=== PATIENT | female | born 1960 | race Caucasian/White ===

== ENCOUNTER 2019-05-07 13:33 | Inpatient (IN) | payer OTHER ==
[~2019-05-07] VITALS: Ht 160 cm; Wt 77.1 kg
[2019-05-07] MEDS ORDERED: SYNTHROID112 MCG PO (13:57)
[2019-05-07] MEDS ORDERED: PREVACID15 MG PO (13:59)
[2019-05-07] MEDS ORDERED: TENORMIN25 MG PO (13:59)
[2019-05-07] MEDS ORDERED: SYNTHROID125 MCG PO (13:59)
[2019-05-07] MEDS ORDERED: ALPRAZOLAM OD0.25 MG PO (14:00)
--- NOTE | 2019-05-07 14:01 | NUR ---
SE RECIBE PTE FEMENINA ALERTA Y ORIENTADA X3, REFIERE DOLOR ABDOMINAL HACE UN MES, INDICA SER REFERIDA POR .
--- NOTE | 2019-05-07 14:06 | NUR ---
SE RECIBE PTE FEMENINA, ALERTA Y ORIENTADA X3, REFIERE DOLOR ABDOMINAL DESDE HACE UN MES. INDICA SER REFERIDA PARA ADMISION POR .
--- NOTE | 2019-05-07 17:15 | NUR ---
PACIENTE ALERTA Y ORIENTADA X3. SE ORIENTA SOBRE PROCEDIMIENTO A REALIZAR Y TX A RECIBIR Y REFIERE ENTENDER. SE REALIZA MUESTRAS DE LABORATORIO BAJO MEDIDAS ASEPTICAS. CANALIZACION PATENTE Y ZEKE DE EDEMA Y ERITEMA. [place] [facility] MEDICAMENTOS [place] ORDEN MEDICA. SE MANTIENE BAJO OBSERVACION POR CAMBIOS SIGNIFICATIVOS. PENDIENTE TOMARSE CONTRASTE ORDENADO PARA CT ABDOMEN Y PELVICO Y ENTREGA DE MUESTRA DE ORINA.
[2019-05-14] MEDS ORDERED: PERCOCET 5-3251 EACH PO (16:31)
[2019-05-14] MEDS ORDERED: DICY20TA PO (16:31)
== END 2019-05-14 17:58 | disposition home or self-care (01) | DRG 392 ==
LOC: ER 13:33 → SURG 17:45 → SURH 17:45
PROVIDERS: ADMIT Surgery
PROC: BW21YZZ Computerized Tomography (CT Scan) of Abdomen and Pelvis using Other Contrast (ICD-10-PCS; 2019-05-07)
PROC: 3E0436Z Introduction of Nutritional Substance into Central Vein, Percutaneous Approach (ICD-10-PCS; principal; 2019-05-08)
PROC: 02HV33Z Insertion of Infusion Device into Superior Vena Cava, Percutaneous Approach (ICD-10-PCS; 2019-05-08)
DX: K57.32 Diverticulitis of large intestine without perforation or abscess without bleeding (principal); E44.0 Moderate protein-calorie malnutrition; K76.0 Fatty (change of) liver, not elsewhere classified; E03.8 Other specified hypothyroidism; I10 Essential (primary) hypertension; G47.33 Obstructive sleep apnea (adult) (pediatric)

== ENCOUNTER 2019-05-29 12:54 | Inpatient (IN) | payer OTHER ==
[~2019-05-29] VITALS: Ht 157.5 cm; Wt 72.6 kg
[~2019-05-29 12:54] MED LIST: ALPRAZOLAM OD0.25 MG PO; DICY20TA PO; PERCOCET 5-3251 EACH PO; PREVACID15 MG PO; SYNTHROID112 MCG PO; SYNTHROID125 MCG PO; TENORMIN25 MG PO
--- NOTE | 2019-05-29 13:20 | NUR ---
PACIENTE FEMINA ALERTA Y ORIENTADA. PRESENTADO EPISODIO DE DIVERTICULITIS #5, REFIERE TENER DOLOR EN EL AREA DE ABDOMEN Y PELVICA. VARGAS MEDICO ES LA HERRERA: ANDREAS WALTERS LA CUAL REFIRIO QUE VINIERA A LA JOE DE EMERGENCIA. VOMITOS EN LAS ULTIMAS [address].
--- NOTE | 2019-05-29 14:35 | NUR ---
PACIENTE ALERTA Y ORIENTADA EN LAS LUPIS ESFERAS, SE CHARMAINE MUESTRAS DE NELLY Y CULTIVO DE NELLY BAJO MEDIDAS ESTERILES. SE ADMINISTRAN MEDICAMENTOS CHAVA ORDEN MEDICA. PACIENTE ORIENTADA SOBRE PROCEDIMIENTOS Y MEDICAMENTOS VERBALIZA ENTENDER. SE AMANDA CON BARANDAS ELEVADAS Y TIMBRE ACCESIBLE.
[2019-06-09] MEDS ORDERED: IMODIUM A-D2 MG PO (12:24)
[2019-06-09] MEDS ORDERED: OXYC1TAB9 PO (12:24)
[2019-06-09] MEDS ORDERED: HYOSCYAMINE0.125 M1 SL (12:24)
== END 2019-06-09 13:47 | disposition home or self-care (01) | DRG 329 ==
LOC: ER 12:54 → SURH 14:10 → EDBD 14:10 → SEC-K 14:10 → SURH 16:59
PROVIDERS: ADMIT Surgery
PROC: 02HV33Z Insertion of Infusion Device into Superior Vena Cava, Percutaneous Approach (ICD-10-PCS; 2019-05-30)
PROC: 3E0436Z Introduction of Nutritional Substance into Central Vein, Percutaneous Approach (ICD-10-PCS; 2019-05-30)
PROC: 30233N1 Transfusion of Nonautologous Red Blood Cells into Peripheral Vein, Percutaneous Approach (ICD-10-PCS; 2019-06-02)
PROC: 4A033R1 Measurement of Arterial Saturation, Peripheral, Percutaneous Approach (ICD-10-PCS; 2019-06-04)
PROC: 4A12X4Z Monitoring of Cardiac Electrical Activity, External Approach (ICD-10-PCS; 2019-06-04)
PROC: 0D1B4Z4 Bypass Ileum to Cutaneous, Percutaneous Endoscopic Approach (ICD-10-PCS; principal; 2019-06-04 08:30)
DX: K57.20 Diverticulitis of large intestine with perforation and abscess without bleeding (principal); K65.1 Peritoneal abscess; E44.0 Moderate protein-calorie malnutrition; D62 Acute posthemorrhagic anemia; K56.51 Intestinal adhesions [bands], with partial obstruction; E03.8 Other specified hypothyroidism; G47.33 Obstructive sleep apnea (adult) (pediatric); I10 Essential (primary) hypertension

== ENCOUNTER 2019-08-07 13:30 | Inpatient (IN) | payer OTHER ==
[~2019-08-07] VITALS: Ht 157.5 cm; Wt 69.9 kg
[~2019-08-07 13:30] MED LIST changes: +HYOSCYAMINE0.125 M1 SL; +IMODIUM A-D2 MG PO; +OXYC1TAB9 PO
[2019-08-07] MEDS ORDERED: TOPROL XL25 M1 PO (14:53)
[2019-08-07] MEDS ORDERED: AMOX1TAB5 (14:54)
[2019-08-07] MEDS ORDERED: PRILOSEC OTC20 MG PO (14:54)
[2019-08-07] MEDS ORDERED: CARAFATE1 GM PO (14:55)
[2019-08-13] MEDS ORDERED: AMOX-CLAV 875-1 EACH (09:42)
[2019-08-16] MEDS ORDERED: INTEGRA F CAPS1 EACH PO (11:09)
== END 2019-08-16 12:03 | disposition home or self-care (01) | DRG 334 ==
LOC: O/R 08-13 07:14 → SURH 08-13 07:14 → O/R 08-13 13:30 → SURH 08-13 13:30 → SURG 08-13 18:17 → SURH 08-13 18:41
PROVIDERS: ADMIT Surgery
PROC: 0W9J4ZZ Drainage of Pelvic Cavity, Percutaneous Endoscopic Approach (ICD-10-PCS; 2019-08-13)
PROC: 4A033R1 Measurement of Arterial Saturation, Peripheral, Percutaneous Approach (ICD-10-PCS; 2019-08-13)
PROC: 4A12X4Z Monitoring of Cardiac Electrical Activity, External Approach (ICD-10-PCS; 2019-08-13)
PROC: 4A19X1Z Monitoring of Respiratory Capacity, External Approach (ICD-10-PCS; 2019-08-13)
PROC: 0DBP4ZZ Excision of Rectum, Percutaneous Endoscopic Approach (ICD-10-PCS; principal; 2019-08-13 12:30)
DX: K57.20 Diverticulitis of large intestine with perforation and abscess without bleeding (principal); K66.0 Peritoneal adhesions (postprocedural) (postinfection); I10 Essential (primary) hypertension; E03.9 Hypothyroidism, unspecified

== ENCOUNTER 2019-10-16 10:45 | Inpatient (IN) | payer OTHER ==
[~2019-10-16] VITALS: Ht 157.5 cm; Wt 68.5 kg
[~2019-10-16 10:45] MED LIST changes: +AMOX-CLAV 875-1 EACH; +AMOX1TAB5; +CARAFATE1 GM PO; +INTEGRA F CAPS1 EACH PO; +PRILOSEC OTC20 MG PO; +TOPROL XL25 M1 PO
[2019-10-16] MEDS ORDERED: ACID REDUCER20 M1 PO (12:53)
[2019-10-16] MEDS ORDERED: SERTRALINE PO (12:53)
[2019-10-20] MEDS ORDERED: ZOLOFT25 MG PO (08:37)
[2019-10-21] MEDS ORDERED: GABAPENTIN100 M2 PO (08:46)
[2019-10-21] MEDS ORDERED: METRONIDAZOLE59 ML (08:46)
[2019-10-23] MEDS ORDERED: GABAPENTIN100 MG PO (11:33)
[2019-10-23] MEDS ORDERED: ULTRACET PO (11:34)
== END 2019-10-23 16:16 | disposition home or self-care (01) | DRG 331 ==
LOC: O/R 10-20 05:50 → SURH 10-20 05:50
PROVIDERS: ADMIT Surgery
PROC: 0DSB4ZZ Reposition Ileum, Percutaneous Endoscopic Approach (ICD-10-PCS; principal; 2019-10-20 07:00)
DX: Z43.2 Encounter for attention to ileostomy (principal); K43.5 Parastomal hernia without obstruction or gangrene

== ENCOUNTER 2022-06-22 08:45 | Inpatient (IN) | payer OTHER ==
[~2022-06-22] VITALS: Ht 157.5 cm; Wt 78.9 kg
[~2022-06-22 08:45] MED LIST changes: +ACID REDUCER20 M1 PO; +GABAPENTIN100 M2 PO; +GABAPENTIN100 MG PO; +METRONIDAZOLE59 ML; +SERTRALINE PO; +ULTRACET PO; +ZOLOFT25 MG PO
[2022-06-22] MEDS ORDERED: NORVASC5 MG PO (13:17)
[2022-06-22] MEDS ORDERED: HYDROCHLOROTHIA25 MG PO (13:17)
[2022-06-22] MEDS ORDERED: ATORVASTATIN CA10 MG PO (13:17)
[2022-06-22] MEDS ORDERED: HYDRODIURIL12.5 MG PO (13:18)
[2022-06-29] MEDS ORDERED: ULTRACET PO (08:10)
== END 2022-06-29 11:13 | disposition home or self-care (01) | DRG 355 ==
LOC: O/R 06-28 08:19 → SURG 06-28 08:45 → SURH 06-28 13:24 → SURG 06-28 13:45 → SURH 06-28 14:26
PROVIDERS: ADMIT Surgery; ATTEND Surgery
PROC: 0WUF4JZ Supplement Abdominal Wall with Synthetic Substitute, Percutaneous Endoscopic Approach (ICD-10-PCS; principal; 2022-06-28 13:45)
DX: K43.6 Other and unspecified ventral hernia with obstruction, without gangrene (principal); Z20.822 Contact with and (suspected) exposure to COVID-19